=== PATIENT | female | born 2000 | race Caucasian/White ===

== ENCOUNTER 2022-02-02 16:08 | Outpatient (CLI) | payer OTHER, SELFPAY ==
[2022-02-02 16:52] LABS: Basophils Absolute Auto 0.03 K/uL (0.00-0.30); Basophils Percent Auto 0.6 % (0.0-3.0); Eosinophils Absolute Auto 0.18 K/uL (0.00-0.50); Eosinophils Percent Auto 3.6 % (0.0-7.0); Hematocrit 38.6 % (33.0-51.0); Hemoglobin* 13.3 gm/dL (12.0-16.0); Lymphocytes Percent Auto 29.9 % (20-44); Mean Corpuscular HGB Conc 35 gm/dL (32-36); Mean Corpuscular Hemoglobin 32 pg (26-34); Mean Corpuscular Volume 92 fL (80-100); Monocytes Percent Auto 8.8 % (0.0-11.0); Neutrophils Absolute Auto 2.86 K/uL (1.7-7.0); Neutrophils Percent Auto 57.1 % (42.0-72.0); Platelet Count* 219 K/uL (140-440); White Blood Count* 5.01 K/uL (4.50-11.00)
[2022-02-02 16:58] LABS: Slide Review Reflex No
[2022-02-02 17:17] LABS: Aspartate Amino Transferase* 35 U/L (12-35); Cholesterol* 231 mg/dL (90-199)
[2022-02-02 17:18] LABS: Alanine Aminotransferase* 18 U/L (4-35); HDL Cholesterol* 68 mg/dL (>=50); LDL Cholesterol Calculated 141 mg/dL (<100); Triglycerides* 109 mg/dL (40-149)
[2022-02-02 18:11] LABS: HCG Qualitative Serum* Negative (Negative)
== END 2022-02-02 16:09 | disposition home or self-care (01) ==
DX: E78.5 Hyperlipidemia, unspecified (principal); Z32.00 Encounter for pregnancy test, result unknown
CPT/HCPCS: 36415; 80061; 84450; 84460; 84703; 85025

== ENCOUNTER 2022-04-03 11:49 | Outpatient (RCR) | payer OTHER, SELFPAY ==
[2022-03-07 14:56] LABS: Alanine Aminotransferase* 16 U/L (4-35); Aspartate Amino Transferase* 30 U/L (12-35); Cholesterol* 242 mg/dL (90-199); Triglycerides* 131 mg/dL (40-149)
[2022-03-07 14:57] LABS: HDL Cholesterol* 82 mg/dL (>=50); LDL Cholesterol Calculated 134 mg/dL (<100)
[2022-03-07 14:58] LABS: Basophils Percent Auto 0.7 % (0.0-3.0); Eosinophils Percent Auto 2.4 % (0.0-7.0); Hematocrit 40.5 % (33.0-51.0); Hemoglobin* 13.8 gm/dL (12.0-16.0); Immature Granulocytes Abs Auto 0.02 K/uL (0.00-0.30); Lymphocytes Percent Auto 26.4 % (20-44); Mean Corpuscular HGB Conc 34 gm/dL (32-36); Mean Corpuscular Hemoglobin 32 pg (26-34); Mean Corpuscular Volume 94 fL (80-100); Monocytes Percent Auto 6.4 % (0.0-11.0); Neutrophils Percent Auto 63.6 % (42.0-72.0); Platelet Count* 261 K/uL (140-440); RDW Coefficient of Variation % 11.1 % (11.5-15.5); Red Blood Count 4.32 m/uL (4.00-5.20); White Blood Count* 4.21 K/uL (4.50-11.00)
[2022-03-07 15:03] LABS: Slide Review Reflex No
[2022-03-08 11:29] LABS: HCG Qualitative Serum* Negative (Negative)
[2022-04-03 12:21] LABS: Basophils Absolute Auto 0.03 K/uL (0.00-0.30); Basophils Percent Auto 0.5 % (0.0-3.0); Eosinophils Absolute Auto 0.18 K/uL (0.00-0.50); Eosinophils Percent Auto 3.2 % (0.0-7.0); Hematocrit 39.4 % (33.0-51.0); Hemoglobin* 13.6 gm/dL (12.0-16.0); Lymphocytes Absolute Auto 1.26 K/uL (0.90-2.90); Lymphocytes Percent Auto 22.7 % (20-44); Mean Corpuscular HGB Conc 35 gm/dL (32-36); Mean Corpuscular Hemoglobin 32 pg (26-34); Mean Corpuscular Volume 93 fL (80-100); Monocytes Percent Auto 6.3 % (0.0-11.0); Neutrophils Absolute Auto 3.74 K/uL (1.7-7.0); Neutrophils Percent Auto 67.3 % (42.0-72.0); Platelet Count* 266 K/uL (140-440); RDW Coefficient of Variation % 11.3 % (11.5-15.5); Red Blood Count 4.26 m/uL (4.00-5.20); White Blood Count* 5.56 K/uL (4.50-11.00)
[2022-04-03 12:22] LABS: Slide Review Reflex No
[2022-04-03 12:34] LABS: HCG Qualitative Serum* Negative (Negative)
[2022-04-03 12:36] LABS: Alanine Aminotransferase* 23 U/L (4-35); Aspartate Amino Transferase* 37 U/L (12-35); Cholesterol* 255 mg/dL (90-199)
[2022-04-03 12:37] LABS: HDL Cholesterol* 72 mg/dL (>=50); LDL Cholesterol Calculated 148 mg/dL (<100); Triglycerides* 177 mg/dL (40-149)
[2022-04-28 20:20] LABS: Basophils Absolute Auto 0.04 K/uL (0.00-0.30); Basophils Percent Auto 0.8 % (0.0-3.0); Eosinophils Absolute Auto 0.08 K/uL (0.00-0.50); Eosinophils Percent Auto 1.5 % (0.0-7.0); Hematocrit 41.7 % (33.0-51.0); Hemoglobin* 14.3 gm/dL (12.0-16.0); Lymphocytes Absolute Auto 1.57 K/uL (0.90-2.90); Lymphocytes Percent Auto 30.2 % (20-44); Mean Corpuscular HGB Conc 34 gm/dL (32-36); Mean Corpuscular Hemoglobin 32 pg (26-34); Mean Corpuscular Volume 93 fL (80-100); Monocytes Percent Auto 6.3 % (0.0-11.0); Neutrophils Absolute Auto 3.18 K/uL (1.7-7.0); Neutrophils Percent Auto 61.2 % (42.0-72.0); Platelet Count* 279 K/uL (140-440); RDW Coefficient of Variation % 11.4 % (11.5-15.5); Red Blood Count 4.48 m/uL (4.00-5.20)
[2022-04-28 20:26] LABS: Slide Review Reflex No
[2022-04-28 20:35] LABS: Alanine Aminotransferase* 23 U/L (4-35); Aspartate Amino Transferase* 36 U/L (12-35); Cholesterol* 282 mg/dL (90-199); Triglycerides* 140 mg/dL (40-149)
[2022-04-28 20:36] LABS: HCG Qualitative* Negative (Negative); HDL Cholesterol* 86 mg/dL (>=50); LDL Cholesterol Calculated 168 mg/dL (<100)
[2022-05-29 18:42] LABS: Basophils Percent Auto 0.8 % (0.0-3.0); Eosinophils Percent Auto 2.1 % (0.0-7.0); Hematocrit 37.5 % (33.0-51.0); Hemoglobin* 12.9 gm/dL (12.0-16.0); Immature Granulocytes Pct Auto 0.8 %; Mean Corpuscular HGB Conc 34 gm/dL (32-36); Mean Corpuscular Hemoglobin 32 pg (26-34); Mean Corpuscular Volume 94 fL (80-100); Monocytes Percent Auto 8.5 % (0.0-11.0); Neutrophils Percent Auto 50.8 % (42.0-72.0); Platelet Count* 253 K/uL (140-440); RDW Coefficient of Variation % 11.3 % (11.5-15.5); Red Blood Count 3.98 m/uL (4.00-5.20); White Blood Count* 3.89 K/uL (4.50-11.00)
[2022-05-29 18:51] LABS: Slide Review Reflex No
[2022-05-29 19:16] LABS: Alanine Aminotransferase* 17 U/L (4-35); Aspartate Amino Transferase* 30 U/L (12-35); Cholesterol* 243 mg/dL (90-199); Triglycerides* 139 mg/dL (40-149)
[2022-05-29 19:17] LABS: HDL Cholesterol* 77 mg/dL (>=50); LDL Cholesterol Calculated 138 mg/dL (<100)
[2022-05-29 22:11] LABS: HCG Qualitative* Negative (Negative)
== END 2023-03-20 15:06 | disposition home or self-care (01) ==
LOC: LAB 11:49
PROVIDERS: Nurse Practitioner Family
DX: L70.0 Acne vulgaris (principal)
CPT/HCPCS: 36415; 80061; 84450; 84460; 84703; 85025